=== PATIENT | female | born 1960 | race African-American/Black ===

== ENCOUNTER 2018-12-21 03:17 | Emergency (ER) | payer MEDICARE, MEDICAID ==
[~2018-12-21] VITALS: Ht 162.6 cm; Wt 87.0 kg
[2018-12-21] MEDS ORDERED: ACETAMINOPHEN 500MG TABLET PO ONE (07:00)
[2018-12-21 08:50] VITALS: BP 148/84
== END 2018-12-21 08:50 | disposition home or self-care (01) ==
LOC: ER 03:17
DX: S42.002A Fracture of unspecified part of left clavicle, initial encounter for closed fracture (principal); M19.90 Unspecified osteoarthritis, unspecified site; W01.0XXA Fall on same level from slipping, tripping and stumbling without subsequent striking against object, initial encounter; Y93.9 Activity, unspecified; Y92.9 Unspecified place or not applicable; Z88.0 Allergy status to penicillin; Z88.2 Allergy status to sulfonamides; Z88.8 Allergy status to other drugs, medicaments and biological substances; Z98.890 Other specified postprocedural states
CPT/HCPCS: 73000; 73030; 99283